=== PATIENT | male | born 1955 | race Caucasian/White ===

== ENCOUNTER 2020-03-10 05:20 | Observation (INO) | payer MEDICARE ==
[~2020-03-10] VITALS: Ht 188 cm; Wt 127.0 kg
[~2020-03-10 05:20] MED LIST: AMLODIPINE BESYL5 MG PO; ASPIRIN81 MG PO; JARDIANCE10 MG PO; LISINOPRIL5 MG PO; METFORMIN HCL500 MG PO; NOVOLIN N100 UNIT/1 SQ; SYMBICORT 16010.2 GM INH; TYLENOL # 31 EA PO; VICTOZA 2-0.6 MG/0.1 SQ; VITAMIN D3250 MCG PO
[2020-03-10] MEDS ORDERED: VANCOMYCIN HCL 1,000 MG ONE (06:15)
[2020-03-10] MEDS ORDERED: TRANEXAMIC ACID 1,000 MG/10 ML ML ONE (06:15)
[2020-03-10] MEDS ORDERED: SODIUM CHLORIDE 0.9% 500ML 500 ML ONE (06:16)
[2020-03-10] MEDS ORDERED: DEXAMETHASONE SOD PHOS 10 MG/1 ML VIAL ONE (06:17)
[2020-03-10] MEDS ORDERED: GABAPENTIN 300 MG CAP ONE (06:17)
[2020-03-10] MEDS ORDERED: CELECOXIB 200 MG CAP ONE (06:17)
[2020-03-10] MEDS ORDERED: CEFAZOLIN SOD 1 GM/NS 50ML 100 ML IV ONE (06:18)
[2020-03-10] MEDS ORDERED: ACETAMINOPHEN 1000 MG/100 ML 100 ML IV ONE (06:56)
[2020-03-10] MEDS ORDERED: ROPIVACAINE 246.25 MG, EPINEPHRINE HCL 1:1000 1ML 0.5 MG, CLONIDINE HCL 0.08 MG, KETORO... INJ ONE ×5 (08:00)
[2020-03-10] MEDS ORDERED: ZOLPIDEM TARTRATE 5 MG TAB PO PRN (08:45)
[2020-03-10] MEDS ORDERED: KETOROLAC TROMETHAMINE 30 MG/ML VIAL IV PRN (08:45)
[2020-03-10] MEDS ORDERED: DOCUSATE SODIUM 100 MG CAP PO PRN (08:45)
[2020-03-10] MEDS ORDERED: DIPHENHYDRAMINE HCL INJ 50 MG/ML VIAL IV PRN (08:45)
[2020-03-10] MEDS ORDERED: ONDANSETRON HCL INJ 2MG/ML 2ML 2 MG/ML VIAL IV PRN (08:45)
[2020-03-10] MEDS ORDERED: ACETAMINOPHEN 650 MG SUPP PR PRN (08:45)
[2020-03-10] MEDS ORDERED: HYDROCODONE/APAP 5MG-325MG TAB PO PRN (08:45)
[2020-03-10] MEDS ORDERED: FENTANYL CITRATE/PF 100MCG/2 ML INJ ONE ×2 (09:16→13:12)
[2020-03-10 10:22] VITALS: BP 108/52
[2020-03-10 10:23] VITALS: BP 108/52
[2020-03-10 10:25] VITALS: BP 108/52
[2020-03-10] MEDS: SODIUM CHLORIDE 0.9% 1000ML 1,000 ML IV SCH ×2 (11:14→20:51)
[2020-03-10] MEDS: ASPIRIN 325 MG TAB PO SCH ×2 (11:14→16:18)
[2020-03-10] MEDS ORDERED: INSULIN LISPRO 100 UNIT/1 ML 3ML VIAL SQ SCH (12:15)
[2020-03-10] MEDS ORDERED: DEXTROSE 50% SYRINGE 50 ML IV PRN (12:15)
[2020-03-10] MEDS ORDERED: EPHEDRINE SULFATE INJ 50 MG/ML VIAL ONE (12:32)
[2020-03-10] MEDS ORDERED: PROPOFOL IV EMULSION 10 MG/ML 20 ML VIAL ONE (12:32)
[2020-03-10] MEDS ORDERED: LIDOCAINE HCL 2% LOCAL INJ 5 ML SDV VIAL INJ ONE (12:32)
[2020-03-10] MEDS ORDERED: KETOROLAC TROMETHAMINE 30 MG/ML VIAL ONE (12:32)
[2020-03-10] MEDS ORDERED: SEVOFLURANE INHAL SOLN 250 ML PEN BTL ONE (12:32)
[2020-03-10] MEDS ORDERED: ONDANSETRON HCL INJ 2MG/ML 2ML 2 MG/ML VIAL ONE (12:32)
[2020-03-10] MEDS ORDERED: LIDOCAINE 2% /EPINEPHRINE 20 ML SDV INJ ONE (12:37)
[2020-03-10] MEDS ORDERED: ROPIVACAINE 0.5% 5 MG/ML 30 ML SDV ONE (12:37)
[2020-03-10] MEDS ORDERED: MIDAZOLAM HCL 2 MG/2 ML VIAL ONE (13:12)
[2020-03-10] MEDS: CEFAZOLIN SOD 1 GM/NS 50ML 50 ML IV SCH ×2 (15:39→23:11)
[2020-03-10 16:00] VITALS: BP 127/70
[2020-03-10] MEDS: CELECOXIB 200 MG CAP PO SCH (16:18)
[2020-03-10] MEDS: HYDROCODONE/APAP 7.5MG-325MG 1 EA TAB PO PRN ×2 (16:22→20:50)
[2020-03-10] MEDS ORDERED: NPH, HUMAN INSULIN ISOPHANE 100 UNIT/1 ML 3ML VIAL SQ SCH (17:00)
[2020-03-10 20:00] VITALS: BP 112/59
[2020-03-10] MEDS ORDERED: METFORMIN HCL 500 MG TAB PO SCH (21:00)
[2020-03-11] VITALS: BP 116/65
[2020-03-11 04:00] VITALS: BP 138/72
[2020-03-11] MEDS: HYDROCODONE/APAP 7.5MG-325MG 1 EA TAB PO PRN ×2 (04:29→08:35)
[2020-03-11] MEDS ORDERED: NON-FORMULARY MEDICATION (Liraglutide (Victoza 2-Pak) 1.8 MG) SQ SCH (06:00)
[2020-03-11] MEDS: SODIUM CHLORIDE 0.9% 1000ML 1,000 ML IV SCH (06:01)
[2020-03-11] MEDS: CEFAZOLIN SOD 1 GM/NS 50ML 50 ML IV SCH (07:28)
[2020-03-11 07:40] LABS: HEMATOCRIT 42.6 % (38.2-49.6); HEMOGLOBIN 14.2 g/dL (14.0-18.0)
[2020-03-11] MEDS ORDERED: METFORMIN HCL 500 MG TAB PO SCH (08:00)
[2020-03-11] MEDS: CELECOXIB 200 MG CAP PO SCH (08:28)
[2020-03-11] MEDS: ASPIRIN 325 MG TAB PO SCH (08:28)
[2020-03-11] MEDS ORDERED: ACETAMINOPHEN 1000 MG/100 ML IV PRN (08:45)
[2020-03-11 08:46] VITALS: BP 137/68
[2020-03-11] MEDS ORDERED: AMLODIPINE BESYLATE 5 MG TAB PO SCH (09:00)
[2020-03-11] MEDS ORDERED: LISINOPRIL 2.5 MG TAB PO SCH (09:00)
[2020-03-11] MEDS ORDERED: NON-FORMULARY MEDICATION (Empagliflozin (Jardiance) 10 MG) PO SCH (09:00)
[2020-03-11 09:54] VITALS: BP 137/68
== END 2020-03-11 12:47 | disposition home or self-care (01) ==
LOC: OR 05:20 → PACU V 08:31 → MED/SURG 10:04
PROVIDERS: ADMIT Specialist; ATTEND Specialist
DX: M17.11 Unilateral primary osteoarthritis, right knee (principal); E11.9 Type 2 diabetes mellitus without complications; I10 Essential (primary) hypertension; Z87.442 Personal history of urinary calculi; M21.061 Valgus deformity, not elsewhere classified, right knee; G47.33 Obstructive sleep apnea (adult) (pediatric); F17.210 Nicotine dependence, cigarettes, uncomplicated; D64.9 Anemia, unspecified; E78.5 Hyperlipidemia, unspecified; Z01.812 Encounter for preprocedural laboratory examination; Z20.828 Contact with and (suspected) exposure to other viral communicable diseases
CPT/HCPCS: 27447; 36415 ×2; 73560; 82948; 85014; 85018; 86850; 86900; 86920; 97110 ×2; 97116 ×2; 97161; C1713; C1776 ×3; G0378 ×2; J0131; J0171; J0690 ×2; J1100; J1885; J2001 ×2; J2250; J2405; J2704; J2795; J3010; J3370; J7030; J7040; U0002

== ENCOUNTER 2020-08-01 07:49 | Outpatient (RCR) | payer MEDICARE | END 2020-08-04 | LOC: PT 07:49 | PROVIDERS: ATTEND Specialist | DX: Z96.651 Presence of right artificial knee joint (principal) | CPT/HCPCS: 97139 ==

== ENCOUNTER → 2020-09-03 | Outpatient (RCR) | payer MEDICARE | LOC: PT 08-05 08:05 | PROVIDERS: ATTEND Specialist | DX: Z96.651 Presence of right artificial knee joint (principal); M62.81 Muscle weakness (generalized); R26.2 Difficulty in walking, not elsewhere classified ==

== ENCOUNTER 2023-06-01 02:20 | Inpatient (IN) | payer MEDICARE, OTHER ==
[2023-06-01] VITALS (8 sets, daily range): BP systolic 115–132; BP diastolic 76–84; PULSE 90–106; RESP 18–20; TEMP 97.9–98.2; O2SAT 95–97
[~2023-06-01] VITALS: Ht 188 cm; Wt 83.9 kg
[2023-06-01] MEDS: SODIUM CHLORIDE 0.9% 1000ML 1,000 ML IV ONE (02:59)
[2023-06-01 03:01] LABS: BASOPHILS # (AUTO) 0.1 (0.0-0.1); BASOPHILS % 0.4 % (0.0-1.0); EOSINOPHILS # (AUTO) 0.2 (0.0-0.4); EOSINOPHILS % 1.7 % (0.0-6.0); HEMATOCRIT 45.8 % (38.2-49.6); HEMOGLOBIN 15.7 g/dL (14.0-18.0); LYMPHOCYTES # (AUTO) 1.7 (1.0-3.2); LYMPHOCYTES % 13.5 % (18.0-39.1); MEAN CORPUSCULAR HEMOGLOBIN 32.3 pg (28-32); MEAN CORPUSCULAR HGB CONC 34.3 g/dL (31-35); MEAN CORPUSCULAR VOLUME 94.2 fL (81-99); MONOCYTES % 8.1 % (4.4-11.3); NEUTROPHILS # (AUTO) 9.5 (2.1-6.9); NEUTROPHILS % 75.7 % (38.7-80.0); PLATELET COUNT 172 x10e3/uL (140-360); RED BLOOD COUNT 4.86 x10e6/uL (4.3-5.7); RED CELL DISTRIBUTION WIDTH 12.6 % (11.7-14.4); WHITE BLOOD COUNT 12.52 x10e3/uL (4.8-10.8)
[2023-06-01 03:12] LABS: INR 1.03; PROTHROMBIN TIME 13.7 seconds (11.9-14.5)
[2023-06-01 03:13] LABS: PARTIAL THROMBOPLASTIN TIME 29.4 seconds (23.8-35.5)
[2023-06-01 03:16] LABS: ALBUMIN 4.1 g/dL (3.5-5.0); ALBUMIN/GLOBULIN RATIO 1.2 (0.8-2.0); ANION GAP 17.4 mmol/L (8-16); BILIRUBIN,TOTAL 1.3 mg/dL (0.2-1.2); CALCIUM 9.6 mg/dL (8.4-10.2); CREATININE, SERUM 0.89 mg/dL (0.72-1.25); POTASSIUM 4.4 mmol/L (3.5-5.1); TOTAL PROTEIN 7.6 g/dL (6.5-8.1)
[2023-06-01 05:07] LABS: BILIRUBIN,URINE NEGATIVE (NEGATIVE); CLARITY,URINE CLEAR (CLEAR); COLOR,URINE YELLOW (YELLOW); GLUCOSE, URINE 500 (NEGATIVE); KETONES,URINE 2+ (NEGATIVE); LEUKOCYTE ESTERASE ,URINE NEGATIVE (NEGATIVE); NITRITE,URINE NEGATIVE (NEGATIVE); PH,URINE 5.5 (5 - 7); PROTEIN,URINE DIPSTICK NEGATIVE (NEGATIVE); URINE UROBILINOGEN 0.2 mg/dL (0.2 - 1)
[2023-06-01 05:25] LABS: BACTERIA,URINE FEW /HPF; EPITHELIAL CELLS,URINE RARE /LPF; RBC,URINE 0-5 /HPF (0-5); WBC,URINE (MAN) 0-5 /HPF (0-5)
[2023-06-01] MEDS ORDERED: DEXTROSE 50% SYRINGE 50 ML IV PRN (05:30)
[2023-06-01] MEDS: SODIUM CHLORIDE 0.9% 1000ML 1,000 ML IV SCH (06:34)
[2023-06-01] MEDS ORDERED: IOPAMIDOL 370 MG/ML 100 ML INFUS..BTL INJ ONE (07:11)
[2023-06-01] MEDS ORDERED: INSULIN REGULAR, HUMAN 100 UNIT/1 ML SQ SCH (07:30)
[2023-06-01] MEDS ORDERED: GADOBENATE DIMEGLUMINE 1 ML IV ONE (11:54)
[2023-06-01 13:01] LABS: HEMATOCRIT 44.3 % (38.2-49.6); HEMOGLOBIN 15.7 g/dL (14.0-18.0)
[2023-06-01] MEDS: HYDROCODONE/APAP 10MG-325MG TAB PO PRN (15:46)
[2023-06-01] MEDS: PEG (High)/E-LYTE SOLN 4,000 ML BTL PO ONE (17:07)
[2023-06-01 17:44] LABS: HEMATOCRIT 44.3 % (38.2-49.6); HEMOGLOBIN 15.3 g/dL (14.0-18.0)
[2023-06-01] MEDS: BUDESONIDE/FORMOTEROL 160/4.5MCG INHALER INH SCH (19:17)
[2023-06-02] VITALS (10 sets, daily range): BP systolic 107–118; BP diastolic 57–89; PULSE 69–94; RESP 16–20; TEMP 97.8–99.6; O2SAT 95–100
[2023-06-02 05:47] LABS: HEMATOCRIT 42.2 % (38.2-49.6); HEMOGLOBIN 14.3 g/dL (14.0-18.0)
[2023-06-02 06:12] LABS: ALBUMIN 3.3 g/dL (3.5-5.0); ALBUMIN/GLOBULIN RATIO 1.1 (0.8-2.0); BILIRUBIN,TOTAL 1.4 mg/dL (0.2-1.2); CALCIUM 8.9 mg/dL (8.4-10.2); CREATININE, SERUM 0.84 mg/dL (0.72-1.25); TOTAL PROTEIN 6.2 g/dL (6.5-8.1)
[2023-06-02] MEDS: AMLODIPINE BESYLATE 5 MG TAB PO SCH (08:45)
[2023-06-02] MEDS ORDERED: ALBUTEROL/IPRATROPIUM 3 ML NEB NEB PRN (09:45)
[2023-06-02] MEDS ORDERED: ONDANSETRON HCL INJ 2MG/ML 2ML 2 MG/ML VIAL IV PRN (09:45)
[2023-06-02] MEDS ORDERED: BENZONATATE 100 MG CAP PO PRN (09:45)
[2023-06-02] MEDS ORDERED: ACETAMINOPHEN 325 MG TAB PO PRN (09:45)
[2023-06-02] MEDS ORDERED: DEXMEDETOMIDINE HCL 200 MCG/2 ML VIAL ONE (12:21)
[2023-06-02] MEDS ORDERED: PROPOFOL IV EMULSION 10 MG/ML 50 ML VIAL IV ONE (12:21)
[2023-06-02] MEDS ORDERED: LIDOCAINE HCL 2% LOCAL INJ 5 ML SDV VIAL INJ ONE (12:21)
[2023-06-03] VITALS (11 sets, daily range): BP systolic 106–131; BP diastolic 58–75; PULSE 72–92; RESP 17–20; TEMP 97.9–98.7; O2SAT 93–100
[2023-06-03 06:14] LABS: BASOPHILS % 0.4 % (0.0-1.0); EOSINOPHILS # (AUTO) 0.3 (0.0-0.4); EOSINOPHILS % 2.8 % (0.0-6.0); HEMATOCRIT 35.9 % (38.2-49.6); HEMOGLOBIN 12.7 g/dL (14.0-18.0); LYMPHOCYTES # (AUTO) 2.3 (1.0-3.2); MEAN CORPUSCULAR HEMOGLOBIN 32.6 pg (28-32); MEAN CORPUSCULAR HGB CONC 35.4 g/dL (31-35); MEAN CORPUSCULAR VOLUME 92.1 fL (81-99); MONOCYTES # (AUTO) 0.9 (0.2-0.8); MONOCYTES % 9.3 % (4.4-11.3); NEUTROPHILS # (AUTO) 6.5 (2.1-6.9); NEUTROPHILS % 64.1 % (38.7-80.0); PLATELET COUNT 134 x10e3/uL (140-360); RED CELL DISTRIBUTION WIDTH 12.6 % (11.7-14.4); WHITE BLOOD COUNT 10.14 x10e3/uL (4.8-10.8)
[2023-06-03 06:55] LABS: ALBUMIN 2.8 g/dL (3.5-5.0); ALBUMIN/GLOBULIN RATIO 1.1 (0.8-2.0); ANION GAP 7.6 mmol/L (8-16); BILIRUBIN,TOTAL 1.2 mg/dL (0.2-1.2); CALCIUM 8.4 mg/dL (8.4-10.2); CREATININE, SERUM 0.8 mg/dL (0.72-1.25); POTASSIUM 3.6 mmol/L (3.5-5.1); TOTAL PROTEIN 5.3 g/dL (6.5-8.1)
[2023-06-03] MEDS ORDERED: DEXTROSE 50% SYRINGE 50 ML IV PRN (09:45)
[2023-06-03] MEDS ORDERED: HYDRALAZINE HCL 20 MG/ML VIAL IV PRN (09:45)
[2023-06-03] MEDS: INSULIN LISPRO 100 UNIT/1 ML 3ML VIAL SQ SCH (11:30)
[2023-06-04] VITALS (10 sets, daily range): BP systolic 106–132; BP diastolic 66–71; PULSE 70–78; RESP 14–19; TEMP 97.7–98.2; O2SAT 94–98
[2023-06-04 06:30] LABS: BASOPHILS % 0.6 % (0.0-1.0); EOSINOPHILS # (AUTO) 0.4 (0.0-0.4); EOSINOPHILS % 5.8 % (0.0-6.0); HEMOGLOBIN 13.4 g/dL (14.0-18.0); LYMPHOCYTES # (AUTO) 1.5 (1.0-3.2); MEAN CORPUSCULAR HEMOGLOBIN 32.4 pg (28-32); MEAN CORPUSCULAR HGB CONC 35.3 g/dL (31-35); MONOCYTES # (AUTO) 0.6 (0.2-0.8); MONOCYTES % 8.5 % (4.4-11.3); NEUTROPHILS # (AUTO) 4.2 (2.1-6.9); NEUTROPHILS % 62.8 % (38.7-80.0); PLATELET COUNT 141 x10e3/uL (140-360); RED BLOOD COUNT 4.13 x10e6/uL (4.3-5.7); RED CELL DISTRIBUTION WIDTH 12.4 % (11.7-14.4)
[2023-06-04 07:02] LABS: ALBUMIN 2.9 g/dL (3.5-5.0); ALBUMIN/GLOBULIN RATIO 0.9 (0.8-2.0); ANION GAP 12.5 mmol/L (8-16); BILIRUBIN,TOTAL 1.1 mg/dL (0.2-1.2); CALCIUM 8.8 mg/dL (8.4-10.2); CREATININE, SERUM 0.88 mg/dL (0.72-1.25); POTASSIUM 4.5 mmol/L (3.5-5.1)
[2023-06-05] VITALS (10 sets, daily range): BP systolic 105–121; BP diastolic 64–78; PULSE 71–85; RESP 17–18; TEMP 97.9–98.5; O2SAT 94–99
[2023-06-06] VITALS (10 sets, daily range): BP systolic 109–126; BP diastolic 61–90; PULSE 72–80; RESP 18–20; TEMP 97.5–97.9; O2SAT 96–99
[2023-06-06] MEDS: LORAZEPAM INJ 2 MG/ML VIAL ONE (05:16)
[2023-06-06] MEDS: METHYLPREDNISOLONE SOD SUCC 125 MG/2ML VIAL ONE (05:16)
[2023-06-06 06:04] LABS: BASOPHILS % 0.5 % (0.0-1.0); EOSINOPHILS # (AUTO) 0.4 (0.0-0.4); EOSINOPHILS % 6.1 % (0.0-6.0); HEMATOCRIT 42.4 % (38.2-49.6); HEMOGLOBIN 14.3 g/dL (14.0-18.0); LYMPHOCYTES # (AUTO) 1.7 (1.0-3.2); LYMPHOCYTES % 29.1 % (18.0-39.1); MEAN CORPUSCULAR HEMOGLOBIN 31.8 pg (28-32); MEAN CORPUSCULAR HGB CONC 33.7 g/dL (31-35); MEAN CORPUSCULAR VOLUME 94.4 fL (81-99); MONOCYTES # (AUTO) 0.6 (0.2-0.8); MONOCYTES % 10.1 % (4.4-11.3); NEUTROPHILS # (AUTO) 3.2 (2.1-6.9); NEUTROPHILS % 53.7 % (38.7-80.0); PLATELET COUNT 145 x10e3/uL (140-360); RED BLOOD COUNT 4.49 x10e6/uL (4.3-5.7); RED CELL DISTRIBUTION WIDTH 12.4 % (11.7-14.4); WHITE BLOOD COUNT 5.95 x10e3/uL (4.8-10.8)
[2023-06-06] MEDS: PEG (High)/E-LYTE SOLN 4,000 ML BTL PO ONE (10:30)
[2023-06-06] MEDS: METRONIDAZOLE 500 MG TAB PO SCH (12:11)
[2023-06-06] MEDS: NEOMYCIN SULFATE 500 MG TAB PO SCH (12:12)
[2023-06-07] VITALS (43 sets, daily range): BP systolic 80–145; BP diastolic 34–111; PULSE 72–106; RESP 13–22; TEMP 97.4–99.4; O2SAT 95–100
[2023-06-07] MEDS ORDERED: HEPARIN SOD/SOD CHLORIDE 1,000 ML ONE (06:57)
[2023-06-07] MEDS ORDERED: NOREPINEPHRINE 8 MG/D5W 250 ML 250 ML ONE ×2 (07:32→12:08)
[2023-06-07] MEDS ORDERED: FAMOTIDINE 20 MG/2 ML VIAL IV ONE (07:33)
[2023-06-07] MEDS ORDERED: BUPIVACAINE HCL 0.5% INJ 30 ML VIAL INJ ONE (09:18)
[2023-06-07] MEDS ORDERED: ONDANSETRON HCL INJ 2MG/ML 2ML 2 MG/ML VIAL IV PRN (09:45)
[2023-06-07] MEDS ORDERED: ACETAMINOPHEN 1000 MG/100 ML IV PRN (09:45)
[2023-06-07] MEDS ORDERED: DIPHENHYDRAMINE HCL INJ 50 MG/ML VIAL IM PRN (09:45)
[2023-06-07] MEDS ORDERED: DEXTROSE 5%/LACTATED RINGERS 1,000 ML IV SCH (09:45)
[2023-06-07] MEDS: SODIUM CHLORIDE 0.9% 250ML IRRIG IR SCH (09:45)
[2023-06-07] MEDS ORDERED: NALOXONE HCL INJ 0.4 MG/ML AMP IV PRN ×2 (09:45→13:00)
[2023-06-07] MEDS: HYDROMORPHONE 1MG/1ML INJ ONE (09:55)
[2023-06-07 10:20] LABS: BASOPHILS # (AUTO) 0.1 (0.0-0.1); BASOPHILS % 0.4 % (0.0-1.0); EOSINOPHILS # (AUTO) 0.1 (0.0-0.4); EOSINOPHILS % 0.6 % (0.0-6.0); HEMATOCRIT 39.1 % (38.2-49.6); HEMOGLOBIN 13.3 g/dL (14.0-18.0); LYMPHOCYTES # (AUTO) 0.6 (1.0-3.2); MEAN CORPUSCULAR HEMOGLOBIN 32.2 pg (28-32); MEAN CORPUSCULAR VOLUME 94.7 fL (81-99); MONOCYTES # (AUTO) 0.5 (0.2-0.8); MONOCYTES % 3.2 % (4.4-11.3); NEUTROPHILS # (AUTO) 12.8 (2.1-6.9); PLATELET COUNT 211 x10e3/uL (140-360); RED BLOOD COUNT 4.13 x10e6/uL (4.3-5.7); RED CELL DISTRIBUTION WIDTH 12.7 % (11.7-14.4); WHITE BLOOD COUNT 14.08 x10e3/uL (4.8-10.8)
[2023-06-07] MEDS: LACTATED RINGER'S 1,000 ML INJ SCH (10:30)
[2023-06-07] MEDS ORDERED: TRANEXAMIC ACID 10 ML ONE (10:32)
[2023-06-07] MEDS ORDERED: PHENYLEPHRINE HCL 1% 10 MG/ML VIAL ONE ×2 (10:46→13:22)
[2023-06-07] MEDS ORDERED: SODIUM CHLORIDE 0.9% 100 ML ONE (10:47)
[2023-06-07] MEDS: MORPHINE SULFATE 1 MG/ML 30ML PCA IV PRN ×2 (12:25)
[2023-06-07] MEDS: MORPHINE SULFATE 1 MG/ML 30ML PCA ONE (12:25)
[2023-06-07] MEDS ORDERED: FENTANYL CITRATE/PF 100MCG/2 ML INJ ONE (12:42)
[2023-06-07] MEDS ORDERED: SUGAMMADEX SODIUM 200 MG/2 ML VIAL IV ONE (13:22)
[2023-06-07] MEDS ORDERED: LIDOCAINE HCL 2% LOCAL INJ 5 ML SDV VIAL INJ ONE (13:22)
[2023-06-07] MEDS ORDERED: PROPOFOL IV EMULSION 10 MG/ML 20 ML VIAL ONE (13:22)
[2023-06-07] MEDS ORDERED: KETAMINE 50MG/5ML SYR ONE (13:22)
[2023-06-07] MEDS ORDERED: ONDANSETRON HCL INJ 2MG/ML 2ML 2 MG/ML VIAL ONE (13:22)
[2023-06-07] MEDS ORDERED: ROCURONIUM BROMIDE 10 MG/ML 5ML VIAL IV ONE (13:22)
[2023-06-07] MEDS ORDERED: SEVOFLURANE INHAL SOLN 250 ML PEN BTL ONE (13:22)
[2023-06-07] MEDS ORDERED: DEXAMETHASONE SOD PHOS INJ 4 MG/ML SDV ONE (13:22)
[2023-06-07] MEDS ORDERED: ACETAMINOPHEN 1000 MG/100 ML IV ONE (13:22)
[2023-06-07] MEDS: SODIUM CHLORIDE 0.9% 1000ML 1,000 ML ONE (15:02)
[2023-06-07] MEDS: Morphine 4mg INJECTION 4 MG/ML INJ IV PRN (18:23)
[2023-06-07] MEDS: KETOROLAC TROMETHAMINE 30 MG/ML VIAL IV PRN (18:42)
[2023-06-07] MEDS: NOREPINEPHRINE 8 MG/D5W 250 ML 250 ML IV PRN (20:06)
[2023-06-08] VITALS (81 sets, daily range): BP systolic 76–142; BP diastolic 34–68; PULSE 75–108; RESP 0–28; TEMP 98.3–98.6; O2SAT 90–99
[2023-06-08 06:39] LABS: BASOPHILS % 0.3 % (0.0-1.0); HEMOGLOBIN 11.9 g/dL (14.0-18.0); LYMPHOCYTES # (AUTO) 1.1 (1.0-3.2); LYMPHOCYTES % 7.2 % (18.0-39.1); MEAN CORPUSCULAR VOLUME 94.1 fL (81-99); MONOCYTES # (AUTO) 1.9 (0.2-0.8); MONOCYTES % 12.9 % (4.4-11.3); NEUTROPHILS # (AUTO) 11.6 (2.1-6.9); NEUTROPHILS % 79.2 % (38.7-80.0); PLATELET COUNT 234 x10e3/uL (140-360); RED BLOOD COUNT 3.72 x10e6/uL (4.3-5.7); RED CELL DISTRIBUTION WIDTH 14.1 % (11.7-14.4); WHITE BLOOD COUNT 14.68 x10e3/uL (4.8-10.8)
[2023-06-08 07:16] LABS: ALBUMIN 2.7 g/dL (3.5-5.0); ALBUMIN/GLOBULIN RATIO 0.9 (0.8-2.0); ANION GAP 15.5 mmol/L (8-16); BILIRUBIN,TOTAL 0.9 mg/dL (0.2-1.2); CALCIUM 8.6 mg/dL (8.4-10.2); POTASSIUM 4.5 mmol/L (3.5-5.1); TOTAL PROTEIN 5.6 g/dL (6.5-8.1)
[2023-06-08] MEDS: MENINGOCOCCAL POLYSACC VAC 50 MCG VIAL IM ONE (09:08)
[2023-06-08] MEDS: PNEUMOCOCCAL VACCINE POLYVALENT 23 MCG/0.5 ML VIAL IM ONE ×2 (11:09)
[2023-06-08] MEDS: BALSAM PERU/CASTOR OIL 60 GM OINT...G. TP SCH (12:12)
[2023-06-08] MEDS: HAEMOPH B POLYSACCH CONJ VACC 10 MCG/0.5 ML VIAL IM ONE (12:13)
[2023-06-08] MEDS: ACETAMINOPHEN 1000 MG/100 ML 100 ML IV ONE (17:57)
[2023-06-08] MEDS ORDERED: ACETAMINOPHEN 1000 MG/100 ML IV PRN (18:00)
[2023-06-09] VITALS (21 sets, daily range): BP systolic 79–135; BP diastolic 38–83; PULSE 77–116; RESP 10–21; TEMP 98.2–98.6; O2SAT 92–100
[2023-06-09 06:18] LABS: HEMATOCRIT 30.8 % (38.2-49.6); HEMOGLOBIN 10.9 g/dL (14.0-18.0); MEAN CORPUSCULAR HEMOGLOBIN 32.8 pg (28-32); MEAN CORPUSCULAR HGB CONC 35.4 g/dL (31-35); MEAN CORPUSCULAR VOLUME 92.8 fL (81-99); PLATELET COUNT 227 x10e3/uL (140-360); RED BLOOD COUNT 3.32 x10e6/uL (4.3-5.7)
[2023-06-09 06:52] LABS: ALBUMIN 2.5 g/dL (3.5-5.0); ALBUMIN/GLOBULIN RATIO 0.9 (0.8-2.0); ANION GAP 14.2 mmol/L (8-16); BILIRUBIN,TOTAL 1.1 mg/dL (0.2-1.2); CALCIUM 8.6 mg/dL (8.4-10.2); CREATININE, SERUM 0.75 mg/dL (0.72-1.25); POTASSIUM 4.2 mmol/L (3.5-5.1); TOTAL PROTEIN 5.4 g/dL (6.5-8.1)
[2023-06-09 09:31] LABS: BAND NEUTROPHILS % (MANUAL) 4 %; LYMPHOCYTES % (MANUAL) 7 % (19-48); MONOCYTES % (MANUAL) 10 % (3.4-9.0); NEUTROPHILS % (MANUAL) 79 % (40-74)
[2023-06-09 09:32] LABS: PLATELET ESTIMATE ADEQUATE; PLATELET MORPHOLOGY COMMENT NORMAL; RBC MORPHOLOGY COMMENT NORMAL
[2023-06-09 18:51] LABS: FERRITIN 407.66 ng/mL (21.81-274.66)
[2023-06-09 19:10] LABS: FOLATE 11.9 ng/mL (7.0-15.4)
[2023-06-10] VITALS (9 sets, daily range): BP systolic 103–139; BP diastolic 57–83; PULSE 52–104; RESP 18–21; TEMP 97.4–98.5; O2SAT 95–100
[2023-06-10] MEDS ORDERED: ONDANSETRON HCL 4 MG ORAL DISINTEGRATING TAB PO PRN (10:00)
[2023-06-10] MEDS: PREGABALIN 50 MG CAP PO SCH ×2 (12:45→22:51)
[2023-06-10] MEDS: HYDROCODONE/APAP 10MG-325MG TAB PO PRN (13:54)
[2023-06-10] MEDS: TAMSULOSIN HCL 0.4 MG CAP PO ONE (14:35)
[2023-06-10] MEDS: TAMSULOSIN HCL 0.4 MG CAP PO SCH (18:46)
[2023-06-10] MEDS: SODIUM FERRIC GLUCONATE COMPLX 125 MG in SODIUM CHLORIDE 0.9% 100 ML IV ONE (19:35)
[2023-06-11] VITALS (9 sets, daily range): BP systolic 101–116; BP diastolic 55–76; PULSE 55–95; RESP 16–18; TEMP 97.7–98.3; O2SAT 90–100
[2023-06-11 06:00] LABS: BASOPHILS % 0.3 % (0.0-1.0); EOSINOPHILS # (AUTO) 0.5 (0.0-0.4); EOSINOPHILS % 4.3 % (0.0-6.0); HEMATOCRIT 31.1 % (38.2-49.6); LYMPHOCYTES # (AUTO) 1.7 (1.0-3.2); LYMPHOCYTES % 13.9 % (18.0-39.1); MEAN CORPUSCULAR HEMOGLOBIN 32.2 pg (28-32); MEAN CORPUSCULAR HGB CONC 35.4 g/dL (31-35); MEAN CORPUSCULAR VOLUME 90.9 fL (81-99); MONOCYTES # (AUTO) 1.5 (0.2-0.8); MONOCYTES % 12.9 % (4.4-11.3); NEUTROPHILS # (AUTO) 8.1 (2.1-6.9); NEUTROPHILS % 68.2 % (38.7-80.0); PLATELET COUNT 296 x10e3/uL (140-360); RED BLOOD COUNT 3.42 x10e6/uL (4.3-5.7); RED CELL DISTRIBUTION WIDTH 12.8 % (11.7-14.4); WHITE BLOOD COUNT 11.86 x10e3/uL (4.8-10.8)
[2023-06-11 06:21] LABS: ALBUMIN 2.3 g/dL (3.5-5.0); ALBUMIN/GLOBULIN RATIO 0.8 (0.8-2.0); ANION GAP 14.7 mmol/L (8-16); BILIRUBIN,TOTAL 1.5 mg/dL (0.2-1.2); CALCIUM 8.3 mg/dL (8.4-10.2); CREATININE, SERUM 0.65 mg/dL (0.72-1.25); POTASSIUM 3.7 mmol/L (3.5-5.1); TOTAL PROTEIN 5.2 g/dL (6.5-8.1)
[2023-06-11] MEDS: Morphine 4mg INJECTION 4 MG/ML INJ IV PRN (08:20)
[2023-06-11] MEDS: CELECOXIB 100 MG CAP PO SCH (17:07)
[2023-06-12] VITALS (10 sets, daily range): BP systolic 101–113; BP diastolic 56–76; PULSE 75–114; RESP 16–21; TEMP 97.7–98.1; O2SAT 92–100
[2023-06-13] VITALS (9 sets, daily range): BP systolic 94–123; BP diastolic 64–81; PULSE 79–100; RESP 16–19; TEMP 97.7–97.8; O2SAT 94–99
[2023-06-13 04:55] LABS: BASOPHILS % 0.3 % (0.0-1.0); EOSINOPHILS # (AUTO) 0.7 (0.0-0.4); EOSINOPHILS % 5.4 % (0.0-6.0); HEMATOCRIT 34.9 % (38.2-49.6); HEMOGLOBIN 11.6 g/dL (14.0-18.0); LYMPHOCYTES # (AUTO) 1.9 (1.0-3.2); MEAN CORPUSCULAR HEMOGLOBIN 31.5 pg (28-32); MEAN CORPUSCULAR HGB CONC 33.2 g/dL (31-35); MEAN CORPUSCULAR VOLUME 94.8 fL (81-99); MONOCYTES # (AUTO) 1.6 (0.2-0.8); MONOCYTES % 12.3 % (4.4-11.3); NEUTROPHILS # (AUTO) 8.3 (2.1-6.9); NEUTROPHILS % 66.2 % (38.7-80.0); PLATELET COUNT 418 x10e3/uL (140-360); RED BLOOD COUNT 3.68 x10e6/uL (4.3-5.7); RED CELL DISTRIBUTION WIDTH 12.9 % (11.7-14.4); WHITE BLOOD COUNT 12.56 x10e3/uL (4.8-10.8)
[2023-06-13 05:49] LABS: ANION GAP 13.8 mmol/L (8-16); CALCIUM 8.5 mg/dL (8.4-10.2); CREATININE, SERUM 0.69 mg/dL (0.72-1.25); POTASSIUM 3.8 mmol/L (3.5-5.1)
[2023-06-13] MEDS: SODIUM FERRIC GLUCONATE COMPLX 125 MG in SODIUM CHLORIDE 0.9% 100 ML IV ONE (15:12)
[2023-06-13] MEDS: TAMSULOSIN HCL 0.4 MG CAP PO SCH (17:21)
[2023-06-14] VITALS: BP 101/62; PULSE 83; RESP 16; TEMP 97.6; O2SAT 100
[2023-06-14 08:26] VITALS: BP 108/66; PULSE 88; RESP 18; TEMP 97.7; O2SAT 99
[2023-06-14 09:45] VITALS: PULSE 61; RESP 18; O2SAT 96
[2023-06-21] MEDS ORDERED: CELEBREX200 MG PO (21:43)
[2023-06-21] MEDS ORDERED: HYDROCODON-ACE1 EA12 PO (21:43)
== END 2023-06-14 10:43 | disposition home or self-care (01) | DRG 326 ==
LOC: ER 02:26 → ERHOLD 05:29 → MED/SURG3 06:45 → ICU 06-07 12:20 → MED/SURG 06-09 10:23
PROVIDERS: ADMIT Internal Medicine; ATTEND Internal Medicine
PROC: 02HV33Z Insertion of Infusion Device into Superior Vena Cava, Percutaneous Approach (ICD-10-PCS; principal; 2023-06-01)
PROC: 0DB68ZX Excision of Stomach, Via Natural or Artificial Opening Endoscopic, Diagnostic (ICD-10-PCS; 2023-06-02)
PROC: 0DBM8ZX Excision of Descending Colon, Via Natural or Artificial Opening Endoscopic, Diagnostic (ICD-10-PCS; 2023-06-02)
PROC: 0DB60ZZ Excision of Stomach, Open Approach (ICD-10-PCS; 2023-06-07)
PROC: 0DBL0ZZ Excision of Transverse Colon, Open Approach (ICD-10-PCS; 2023-06-07)
PROC: 0DBU0ZX Excision of Omentum, Open Approach, Diagnostic (ICD-10-PCS; 2023-06-07)
PROC: 0FBG0ZZ Excision of Pancreas, Open Approach (ICD-10-PCS; 2023-06-07)
PROC: 0DBM0ZZ Excision of Descending Colon, Open Approach (ICD-10-PCS; 2023-06-07)
PROC: 07BP0ZZ Excision of Spleen, Open Approach (ICD-10-PCS; 2023-06-07)
PROC: 02HV33Z Insertion of Infusion Device into Superior Vena Cava, Percutaneous Approach (ICD-10-PCS; 2023-06-07)
DX: C18.6 Malignant neoplasm of descending colon (principal); E43 Unspecified severe protein-calorie malnutrition; Z68.23 Body mass index [BMI] 23.0-23.9, adult; D62 Acute posthemorrhagic anemia; J44.1 Chronic obstructive pulmonary disease with (acute) exacerbation; N13.8 Other obstructive and reflux uropathy; E11.9 Type 2 diabetes mellitus without complications; K44.9 Diaphragmatic hernia without obstruction or gangrene; I10 Essential (primary) hypertension; E78.5 Hyperlipidemia, unspecified; K64.8 Other hemorrhoids; Z96.651 Presence of right artificial knee joint; F17.210 Nicotine dependence, cigarettes, uncomplicated; N40.1 Benign prostatic hyperplasia with lower urinary tract symptoms; R33.8 Other retention of urine; I49.3 Ventricular premature depolarization; K66.0 Peritoneal adhesions (postprocedural) (postinfection)
CPT/HCPCS: 36415; 36569; 43239; 45378; 51700; 71045; 71260; 74174; 74183; 74470; 76857; 80048; 80053; 81001; 82105; 82378; 82607; 82728; 82746; 82948; 83036; 83540; 83690; 84152; 84466; 85007; 85014; 85018; 85025; 85027; 85045; 85610; 85730; 86304; 86850; 86900; 86920; 88304; 88305; 88309; 88313; 88331; 88342; 90732; 93005; 93306; 94664; 94799; 99252; 99284; J1100; J1170; J1885; J2001; J2060; J2270; J2371; J2405; J2543; J2916; J2919; J7030; J7050; P9016; Q9967; U0002